=== PATIENT | male | born 1950 | race Caucasian/White ===

== ENCOUNTER 2024-03-25 11:22 | Emergency (ER) | payer OTHER, SELFPAY ==
[2024-03-25 11:25] VITALS: BP 149/83
[2024-03-25 12:05] VITALS: BMI 31.8
[2024-03-25 12:07] VITALS: BP 141/76
[2024-03-25] MEDS: BENADRYL 25 MG IV (12:26)
[2024-03-25] MEDS: PEPCID 20 MG IV (12:26)
[2024-03-25] MEDS: SOLU-MEDROL PF 125 MG IV (12:27)
--- NOTE | 2024-03-25 12:43 | ED.GENMED ---
History of Present Illness
General
Chief Complaint: Allergic Reaction
Source: patient
Exam Limitations: none
Time Seen by Provider: 03/25/24 11:40
Nursing documentation reviewed up to this point in time: agreed with
History of Present Illness
History of Present Illness:
73 y/o M with h/o HTN on lisinipril 10 yeras
says he had URI last week, fever and cough and diarrhea; symptoms lasted a few days and nearly completely resolved (had a slight residual cough)
and then 2 days later (on 03/19) he had foot swelling right lateral aspect without skin changes or pain. the following day he had L foot swelling minimally as well; and then developed large patches of redness b/l upper arms and left hand that were
itchy; (he took a photo to show me)
the patchees/redness resolved with benadryl
then overnight 03/22 he felt like his chin was a little swollen
went to pcp on 03/23 and was told to take benadryl and was given a medrol dose thad to start if it wiorsened.
he says last evening around 5 pm he felt his left upper lip was swollen and started medrol
he took 4 dose since then and woke up with R sided upper lip swelling
he has nto felt it worsen since waking
no airway issues, trouble breathing, new rashes, vomiting, sob, throat swelling, voice change.
never had this happen before
Past History
Past History
ED Past Medical History: HTN
Social History
Tobacco: Non-smoker
Personal:
Living: with family
Review of Systems
Review of Systems
Allergies reviewed?: Yes
All Other Systems: Not applicable
Phy Exam
Physical Exam
Physical Exam:
GENERAL: Alert , in no apparent distress
EYE: pupils equal and reactive
NECK: Supple
ENT: o/p clr, mmm.
no intraoral tissue swelling appreciated
normal phonation
no drooling
no tongue swelling
mild to mod upper lip swelling
no other facial swellin appreciated
no rash
CARDIAC: Regular rate and rhythm .
LUNGS: Clear breath sounds bilaterally, no acute respiratory distress, no wheezes/rales/rhonchi
ABDOMEN: Soft, without focal tenderness, no r/g, no cvat, normal bowel sounds
NEUROLOGICAL: Alert and oriented, no focal neuro deficits
SKIN: Warm and dry, skin intact.
MUSCULOSKELETAL: very mininal LE edema pitting 1+
no foto swelling apprecitaed
PSYCH: Normal and appropriate interaction.
Course
Orders/Labs/Results
Orders:
Orders
03/25/24 12:10
Complete Blood Count/With Diff Urgent
Comprehensive Metabolic Panel Urgent
03/25/24 12:13
Diphenhydramine [Benadryl] 25 mg IV NOW STA
Famotidine [Pepcid] 20 mg IV NOW STA
MethylPREDNISolone PF [Solu-Medrol Pf] 125 mg IV NOW STA
03/25/24 12:50
COVID-19 Antigen Urgent
Source: Nasal Swab
Abnormal Lab Results
03/25/24
12:10
WBC 13.5 H 10^3/uL
(4.8-10.8)
RBC 4.52 L 10^6/uL
(4.70-6.10)
Abs Immat Gran (auto) 0.1 H 10^3/uL
(0-0.05)
Absolute Neuts (auto) 11.4 H 10^3/uL
(1.4-6.5)
Absolute Monos (auto) 0.7 H 10^3/uL
(0.1-0.6)
Immature Gran % 0.7 H %
(0-0.5)
Neutrophils % 84.5 H %
(42.2-75.2)
Lymphocytes % 9.4 L %
(20.5-51.1)
Glucose 124 H mg/dl
(70-99)
03/25/24 12:10
03/25/24 12:10
Vital Signs
Initial and Last Documented VS:
Initial Vital Signs
Temp Pulse Resp BP Pulse Ox
36.8 C 80 18 149/83 97
03/25/24 11:25 03/25/24 11:25 03/25/24 11:25 03/25/24 11:25 03/25/24 11:25
Last Documented Vital Signs
Temp Pulse Resp BP Pulse Ox
36.8 C 64 15 138/75 96
03/25/24 11:25 03/25/24 14:45 03/25/24 14:45 03/25/24 14:00 03/25/24 14:45
MDM/Problems Addressed
Differential Diagnosis Includes:
angioedema, post viral vs. toy inhibor, allergic reaction; post viral reaction
MDM/Problems Addressed:
73 y/o M
recnet viral infection last week
then some swelling, rash, an now facial swelling
the lip seems c/w angioedema
pt showedme a photo of his rash he had earlier in the aweek and it looked like giant urticaria
already on medrol
Symptoms are certainly not worse since this morning I have been stable, he has no airway issues, shortness of breath. Patient is extremely well-appearing. His blood pressure is controlled. He has been on the lisinopril for years. Labs reveal a
white count of 13.5 with a left shift which could be from the steroids or from his recent infection. His COVID was negative, creatinine was normal. Patient was given IV Benadryl and steroids and has slight improvement of symptoms and certainly no
worsening of symptoms. I discussed that this could be a postviral angioedema versus TOY inhibitor induced angioedema. At this point I do feel like it is worthwhile discontinuing the TOY inhibitor until seeing his doctor. I tried reaching his
doctor by placing a phone call to communicate the need for follow-up. In the meantime I would having continue the Benadryl 3 times a day as well as adding prednisone rather than the Medrol Dosepak, 40 mg once a day for 4 days
Did have who closely followed up with his family doctor. Discussed with ED attending who agrees
03/25/2024 1525 PM
pt's pcp did call me back, he did agree with stopping th elisinopril for now
will f/u
*Critical Care Note
Total Time (30-74mins, 75-104mins- exclusive of procedures): Not Applicable
ED Attending Note
-
Portions of this chart may have been created with voice recognition software.� Occasional wrong word or��sound alike� substitutions may have occurred due to the inherent limitations of voice recognition software.
Discharge Plan
Departure
Patient Disposition: Home (Routine Discharge)
Date of Disposition: 03/25/24
Time of Disposition: 15:13
Patient with high blood pressure during this ER visit?: No
Condition: Fair
Covid-19: Not Applicable
Discharge Problem:
Angioedema
Instructions: Angioedema
Prescriptions:
New
prednisone 20 mg tablet
40 mg PO DAILY Qty: 8 0RF
No Action
diphenhydramine HCl [Banophen] 25 MG capsule
25 mg PO Q4HPRN PRN (Reason: allergy) Qty: 20 0RF
epinephrine [EpiPen] 0.3 MG/0.3/SYRINGE auto-injector
0.3 mg IM .STAT PRN (Reason: difficulty breathing) Qty: 1 0RF
Referrals:
Shay Cisneros MD [Family Provider] - Tomorrow
Activity Restrictions/Additional Instructions:
CONTINUE THE BENADRYL FOR A FEW MORE DAYS 2-3 TIMES ADAY
TAKE PREDNISONE STARTING TOMORROW, RATHER THAN THE MEDRO DOSE THAD, ONCE A DAY FOR 4 DAYS
RETURN FOR:WORSENING LIP/THROAT SWELLING, TROUBLE BREATHING OR SWALLOWING OR ANY VOICE CHANGE/SHORTNESS OF BREATH
OTHERWISE FOLLOW UP WITH YOUR DOCTOR
FOR NOW IT IS BEST TO STOP THE LISINIOPRIL SINCE IT IS A COMMON CAUSE FOR ANGIOEDEMA
Interventions
Interventions:
*Risk Screen - Suicide Last Done: 03/25/24 11:25
*General Assessment Last Done: 03/25/24 12:06
*Neglect/Abuse Screening Last Done: 03/25/24 12:06
ED- Fall Risk Assessment Last Done: 03/25/24 12:06
*ED COVID-19 Vaccine History Last Done: 03/25/24 12:06
*Nursing Disposition Last Done: 03/25/24 15:23
ED- Cardiac Assessment Last Done: 03/25/24 12:06
ED- Pulmonary Assessment Last Done: 03/25/24 12:06
ED-Skin Assessment Last Done: 03/25/24 12:06
Discharge Date and Time
Print Language: [place] CITIZEN
[2024-03-25 12:46] LABS: % Basophils 0.1 % (0-2); % Immature Granulocytes 0.7 % (0-0.5); % Lymphocytes 9.4 % (20.5-51.1); % Monocytes 5.3 % (1.7-9.3); % Neutrophils 84.5 % (42.2-75.2); Absolute Immature Granulocytes 0.1 10^3/uL (0-0.05); Absolute Lymphocytes 1.3 10^3/uL (1.2-3.4); Absolute Monocytes 0.7 10^3/uL (0.1-0.6); Absolute Neutrophils 11.4 10^3/uL (1.4-6.5); Hematocrit 40.5 % (39.0-52.0); Hemoglobin 13.9 g/dL (13.0-18.0); Mean Corp Hgb Conc. 34.3 g/dL (33.0-37.0); Mean Corpuscular Hgb 30.8 pg (27.0-31.0); Mean Corpuscular Volume 89.6 fL (80.0-94.0); Mean Platelet Volume 8.9 fL (7.4-10.4); Nucleated Red Blood Cells % 0 % (-); Platelet Count 290 10^3/uL (130-400); Red Blood Cell Count 4.52 10^6/uL (4.70-6.10); Red Cell Dist. Width 12.2 % (11.5-14.5); White Blood Cell Count 13.5 10^3/uL (4.8-10.8)
[2024-03-25 13:00] VITALS: BP 133/74
[2024-03-25 13:05] LABS: ALT (SGPT) 27 U/L (0-50); AST (SGOT) 22 U/L (17-59); Albumin 4.1 g/dl (3.5-5.0); Alkaline Phosphatase 46 U/L (38-126); Blood Urea Nitrogen 14 mg/dl (9-20); Calcium 9.3 mg/dl (8.4-10.2); Carbon Dioxide 24 mmol/L (22-30); Chloride 101 mmol/L (98-107); Estimated Creatinine Clearance 108 ml/min; Glucose 124 mg/dl (70-99); Sodium 139 mmol/L (135-145); Total Bilirubin 0.4 mg/dl (0.2-1.3); Total Protein 6.9 g/dl (6.3-8.2); eGFR > 60.00
[2024-03-25 13:11] LABS: COVID-19 Antigen Negative (Negative)
[2024-03-25 14:00] VITALS: BP 138/75
== END 2024-03-25 15:23 | disposition home or self-care (01) ==
LOC: EMR 11:22
PROVIDERS: Physician Assistant; EMERGENCY PHYSICIAN Emergency Medicine; FAMILY PHYSICIAN Hospitalist
DX: T78.3XXA Angioneurotic edema, initial encounter (principal); I10 Essential (primary) hypertension
CPT/HCPCS: 99283; 96374; 96375; 80053; 85025; 87811